=== PATIENT | female | born 1950 | race Caucasian/White ===

== ENCOUNTER 2017-01-27 13:40 | Emergency (ER) | payer OTHER ==
[~2017-01-27] VITALS: Ht 154.9 cm; Wt 78.5 kg
[~2017-01-27 13:40] MED LIST: AMBIEN CR12.5 MG PO; ATIVAN0.5 MG PO; ATORVASTATIN CA10 MG PO; BENICAR20 MG PO; CALCIUM500 M4 PO; DESYREL100 MG PO; DIAZEPAM5 MG PO; HYDROXYZINE HCL50 MG PO; LYRICA150 MG PO; MELOXICAM15 MG PO; METFORMIN HCL500 MG PO; OMEPRAZOLE20 MG PO; ONE DAILY 50 P1 EACH PO; POSTURE D; VALIUM2 MG PO; VENLAFAXINE HC150 M1 PO
[2017-01-27 14:07] LABS: HEMATOCRIT 36.6 % (36.0-46.0); MCH 28.4 PG (29.0-34.0); MCHC 33.9 G/DL (30.0-36.0); MCV 83.8 FL (83-99); MEAN PLAT.VOLUME 10.4 uM^3 (9.5-12.4); PLATELET COUNT 189 K/uL (156-360); RBC DIS.WIDTH-CV 13.7 % (11.8-14.6); RBC DIS.WIDTH-SD 40.5 % (39-53); RED BLOOD COUNT 4.37 M/uL (3.80-5.20)
[2017-01-27 14:16] LABS: CHLORIDE 110 mEq/L (99-109)
[2017-01-27 14:17] LABS: POTASSIUM 4.2 mEq/L (3.7-5.4); SODIUM 142 mEq/L (136-147)
[2017-01-27 14:18] LABS: ADD MIUA? YES; BILIRUBIN NEGATIVE; BLOOD NEGATIVE; COLOR YELLOW ((YELLOW)); GLUCOSE (STRIP) NEGATIVE; KETONES 20; LEUKOCYTES TRACE; NITRITE NEGATIVE; PROTEIN (STRIP) 100; SPECIFIC GRAVITY 1.026 (1.000-1.030); UROBILINOGEN 0.2 MG/DL (0.2-1.0)
[2017-01-27 14:19] LABS: GLUCOSE 146 mg/dL (70-99)
[2017-01-27 14:20] LABS: ANION GAP 10 MEQ/L (2-14)
[2017-01-27 14:21] LABS: TOTAL BILIRUBIN 0.6 mg/dL (0.0-1.0)
[2017-01-27 14:22] LABS: ALKALINE PHOSPHATASE 101 IU/L (3-129); GFR ESTIMATE (CALCULATED) 34 mL/min/
[2017-01-27 14:24] LABS: UREA NITROGEN (BUN) 22 mg/dL (9-23)
[2017-01-27 14:26] LABS: LIPASE 19 U/L (1.0-51.0)
[2017-01-27 14:43] LABS: BACTERIA NONE SEEN /HPF; EPITHELIAL CELLS 1+ /HPF; MUCUS 1+ /LPF; RED BLOOD CELLS 0-5 /HPF (0-5); UCUL ADDED? NO
[2017-01-27] MEDS ORDERED: KEFLEX500 MG PO (17:33)
[2017-01-27 17:49] VITALS: BP 137/73
== END 2017-01-27 17:56 | disposition home or self-care (01) ==
LOC: EME 13:40
DX: N39.0 Urinary tract infection, site not specified (principal); E86.0 Dehydration; E11.9 Type 2 diabetes mellitus without complications; E78.5 Hyperlipidemia, unspecified; Z79.84 Long term (current) use of oral hypoglycemic drugs; F17.200 Nicotine dependence, unspecified, uncomplicated
CPT/HCPCS: 80053; 81003; 83605; 83690; 85027; 87077; 87086; 87186; 99281; 99284; J0696; J2060; J7030; J7050

== ENCOUNTER 2017-01-28 15:18 | Emergency (ER) | payer OTHER ==
[~2017-01-28] VITALS: Ht 154.9 cm; Wt 78.2 kg
[~2017-01-28 15:18] MED LIST changes: +KEFLEX500 MG PO
[2017-01-28 17:29] LABS: HEMATOCRIT 35.3 % (36.0-46.0); MCH 28.6 PG (29.0-34.0); MCHC 34.8 G/DL (30.0-36.0); MCV 82.1 FL (83-99); MEAN PLAT.VOLUME 10.9 uM^3 (9.5-12.4); PLATELET COUNT 195 K/uL (156-360); RBC DIS.WIDTH-CV 13.5 % (11.8-14.6); RBC DIS.WIDTH-SD 38.8 % (39-53); WHITE BLOOD COUNT 6.6 K/uL (4.1-10.2)
[2017-01-28 17:41] LABS: CHLORIDE 111 mEq/L (99-109); POTASSIUM 3.7 mEq/L (3.7-5.4); SODIUM 143 mEq/L (136-147)
[2017-01-28 17:44] LABS: GLUCOSE 111 mg/dL (70-99)
[2017-01-28 17:45] LABS: ANION GAP 10 MEQ/L (2-14); TOTAL BILIRUBIN 0.6 mg/dL (0.0-1.0)
[2017-01-28 17:46] LABS: SERUM ETHYL ALCOHOL < 10 mg/dL
[2017-01-28 17:47] LABS: ALKALINE PHOSPHATASE 94 IU/L (3-129); GFR ESTIMATE (CALCULATED) 37 mL/min/
[2017-01-28 17:48] LABS: UREA NITROGEN (BUN) 22 mg/dL (9-23)
[2017-01-28 17:49] LABS: DIRECT BILIRUBIN 0.2 mg/dL (0.0-0.3)
[2017-01-28 17:51] LABS: LIPASE 15 U/L (1.0-51.0)
[2017-01-28 21:40] VITALS: BP 128/65
== END 2017-01-28 21:42 | disposition home or self-care (01) ==
LOC: EME 15:18
PROVIDERS: Emergency Medicine
DX: F33.1 Major depressive disorder, recurrent, moderate (principal); T14.8 Other injury of unspecified body region; F41.1 Generalized anxiety disorder; F60.3 Borderline personality disorder; M79.7 Fibromyalgia; E78.5 Hyperlipidemia, unspecified; R73.03 Prediabetes; F17.200 Nicotine dependence, unspecified, uncomplicated
CPT/HCPCS: 70450; 80048; 80076; 81003; 83690; 85027; 87086; 90839; 99281; 99284; G0480

== ENCOUNTER 2017-02-13 01:45 | Emergency (ER) | payer OTHER ==
[~2017-02-13] VITALS: Ht 154.9 cm; Wt 81.3 kg
[2017-02-13 02:36] LABS: HEMATOCRIT 40.8 % (36.0-46.0); MCH 28.4 PG (29.0-34.0); MCHC 33.6 G/DL (30.0-36.0); MCV 84.6 FL (83-99); MEAN PLAT.VOLUME 11.7 uM^3 (9.5-12.4); PLATELET COUNT 212 K/uL (156-360); RBC DIS.WIDTH-CV 13.3 % (11.8-14.6); RBC DIS.WIDTH-SD 41.1 % (39-53); RED BLOOD COUNT 4.82 M/uL (3.80-5.20)
[2017-02-13 02:37] LABS: WHITE BLOOD COUNT 9.5 K/uL (4.1-10.2)
[2017-02-13 02:48] LABS: CHLORIDE 104 mEq/L (99-109); POTASSIUM 4.1 mEq/L (3.7-5.4); SODIUM 139 mEq/L (136-147)
[2017-02-13 02:49] LABS: GLUCOSE 180 mg/dL (70-99)
[2017-02-13 02:51] LABS: ANION GAP 11 MEQ/L (2-14)
[2017-02-13 02:53] LABS: GFR ESTIMATE (CALCULATED) 28 mL/min/
[2017-02-13 02:54] LABS: UREA NITROGEN (BUN) 22 mg/dL (9-23)
[2017-02-13 04:07] LABS: ADD MIUA? YES; BILIRUBIN NEGATIVE; BLOOD NEGATIVE; COLOR YELLOW ((YELLOW)); GLUCOSE (STRIP) NEGATIVE; KETONES NEGATIVE; LEUKOCYTES TRACE; NITRITE NEGATIVE; PROTEIN (STRIP) 30; SPECIFIC GRAVITY 1.017 (1.000-1.030); UROBILINOGEN 0.2 MG/DL (0.2-1.0)
[2017-02-13 04:12] LABS: BACTERIA RARE /HPF; EPITHELIAL CELLS RARE /HPF; HYALINE CASTS 0-5 /LPF; MUCUS TRACE /LPF; RED BLOOD CELLS 0-5 /HPF (0-5); UCUL ADDED? NO; WHITE BLOOD CELLS NONE SEEN /HPF (0-5)
[2017-02-13] MEDS ORDERED: PERCOCET 5/31 TABLET PO (04:15)
[2017-02-13] MEDS ORDERED: FLOMAX0.4 MG PO (04:15)
[2017-02-13 05:04] VITALS: BP 123/85
[2017-02-14] MEDS ORDERED: ZOFRAN4 MG PO (05:33)
[2017-02-14] MEDS ORDERED: LYRICA50 MG PO (20:13)
[2017-02-14] MEDS ORDERED: 50+ COMPANION0.4 MG PO (20:14)
== END 2017-02-13 05:05 | disposition home or self-care (01) ==
LOC: EME 01:45 → EXP 01:45
DX: N20.1 Calculus of ureter (principal); N18.9 Chronic kidney disease, unspecified; M79.7 Fibromyalgia; R73.03 Prediabetes; F17.200 Nicotine dependence, unspecified, uncomplicated
CPT/HCPCS: 74176; 80048; 81003; 85027; 99281; 99285; J1885; J2270; J2405; J7030

== ENCOUNTER 2017-02-14 02:18 | Emergency (ER) | payer OTHER ==
[~2017-02-14] VITALS: Ht 154.9 cm; Wt 76.5 kg
[~2017-02-14 02:18] MED LIST changes: +FLOMAX0.4 MG PO; +PERCOCET 5/31 TABLET PO
[2017-02-14 03:22] LABS: HEMATOCRIT 39.6 % (36.0-46.0); MCH 28.3 PG (29.0-34.0); MCHC 32.8 G/DL (30.0-36.0); MCV 86.3 FL (83-99); MEAN PLAT.VOLUME 11.2 uM^3 (9.5-12.4); PLATELET COUNT 166 K/uL (156-360); RBC DIS.WIDTH-CV 13.5 % (11.8-14.6); RBC DIS.WIDTH-SD 42.5 % (39-53); RED BLOOD COUNT 4.59 M/uL (3.80-5.20); WHITE BLOOD COUNT 7.5 K/uL (4.1-10.2)
[2017-02-14 03:30] LABS: CHLORIDE 105 mEq/L (99-109); POTASSIUM 3.9 mEq/L (3.7-5.4); SODIUM 139 mEq/L (136-147)
[2017-02-14 03:32] LABS: GLUCOSE 125 mg/dL (70-99)
[2017-02-14 03:34] LABS: ANION GAP 12 MEQ/L (2-14); TOTAL BILIRUBIN 0.8 mg/dL (0.0-1.0)
[2017-02-14 03:36] LABS: ALKALINE PHOSPHATASE 110 IU/L (3-129); GFR ESTIMATE (CALCULATED) 32 mL/min/
[2017-02-14 03:37] LABS: UREA NITROGEN (BUN) 19 mg/dL (9-23)
[2017-02-14 03:39] LABS: LIPASE 13 U/L (1.0-51.0)
[2017-02-14 05:09] LABS: ADD MIUA? YES; BILIRUBIN NEGATIVE; BLOOD NEGATIVE; COLOR YELLOW ((YELLOW)); GLUCOSE (STRIP) NEGATIVE; KETONES NEGATIVE; LEUKOCYTES TRACE; NITRITE NEGATIVE; PROTEIN (STRIP) NEGATIVE; SPECIFIC GRAVITY 1.016 (1.000-1.030); UROBILINOGEN 0.2 MG/DL (0.2-1.0)
[2017-02-14] MEDS ORDERED: ZOFRAN4 MG PO (05:33)
[2017-02-14 05:43] VITALS: BP 159/96
[2017-02-14 05:50] LABS: BACTERIA RARE /HPF; EPITHELIAL CELLS RARE /HPF; MUCUS TRACE /LPF; RED BLOOD CELLS 0-5 /HPF (0-5); UCUL ADDED? NO; WHITE BLOOD CELLS 0-5 /HPF (0-5)
[2017-02-14] MEDS ORDERED: LYRICA50 MG PO (20:13)
[2017-02-14] MEDS ORDERED: 50+ COMPANION0.4 MG PO (20:14)
[2017-02-15] MEDS ORDERED: TAMSULOSIN HCL0.4 MG PO (14:31)
[2017-02-15] MEDS ORDERED: CIPRO500 MG PO (14:31)
== END 2017-02-14 05:55 | disposition home or self-care (01) ==
LOC: EME 02:18
PROVIDERS: Emergency Medicine
DX: N20.1 Calculus of ureter (principal); N23 Unspecified renal colic; R10.9 Unspecified abdominal pain
CPT/HCPCS: 74000; 80053; 81003; 83690; 85027; 99281; 99284; J1885; J2270; J2405; J7030

== ENCOUNTER 2017-02-14 16:56 | Observation (INO) | payer OTHER ==
[~2017-02-14] VITALS: Ht 152.4 cm; Wt 77.2 kg
[~2017-02-14 16:56] MED LIST changes: +ZOFRAN4 MG PO
[2017-02-14 18:24] LABS: HEMATOCRIT 38.3 % (36.0-46.0); MCH 28.2 PG (29.0-34.0); MCHC 32.6 G/DL (30.0-36.0); MCV 86.5 FL (83-99); RBC DIS.WIDTH-CV 13.4 % (11.8-14.6); RBC DIS.WIDTH-SD 42.5 % (39-53); RED BLOOD COUNT 4.43 M/uL (3.80-5.20)
[2017-02-14 18:30] LABS: CHLORIDE 107 mEq/L (99-109); POTASSIUM 4.1 mEq/L (3.7-5.4); SODIUM 142 mEq/L (136-147)
[2017-02-14 18:32] LABS: GLUCOSE 109 mg/dL (70-99)
[2017-02-14 18:33] LABS: ANION GAP 17 MEQ/L (2-14)
[2017-02-14 18:35] LABS: GFR ESTIMATE (CALCULATED) 32 mL/min/
[2017-02-14 18:36] LABS: UREA NITROGEN (BUN) 17 mg/dL (9-23)
[2017-02-14] MEDS ORDERED: LYRICA50 MG PO (20:13)
[2017-02-14] MEDS ORDERED: 50+ COMPANION0.4 MG PO (20:14)
[2017-02-14 21:06] LABS: MEAN PLAT.VOLUME 11.3 uM^3 (9.5-12.4); PLATELET COUNT 177 K/uL (156-360)
[2017-02-14 22:22] LABS: ADD MIUA? NO; BILIRUBIN NEGATIVE; BLOOD NEGATIVE; COLOR YELLOW ((YELLOW)); GLUCOSE (STRIP) NEGATIVE; KETONES 5; LEUKOCYTES NEGATIVE; NITRITE NEGATIVE; PROTEIN (STRIP) 30; SPECIFIC GRAVITY 1.016 (1.000-1.030); UCUL ADDED? NO; UROBILINOGEN 0.2 MG/DL (0.2-1.0)
[2017-02-14 23:31] VITALS: BP 141/74
[2017-02-14 23:36] LABS: POINT-OF-CARE METER ID UU14162513
[2017-02-15 03:58] VITALS: BP 144/88
[2017-02-15 05:33] LABS: POINT-OF-CARE METER ID UU13113700
[2017-02-15 07:18] LABS: ANION GAP 7 MEQ/L (2-14); CHLORIDE 112 MEQ/L (99-109); GFR ESTIMATE (CALCULATED) 34 mL/min/; GLUCOSE 93 mg/dL (70-99); POTASSIUM 3.8 MEQ/L (3.7-5.4); SAMPLE HEMOLYSIS CHECK 0; SAMPLE ICTERIC CHECK 0; SAMPLE LIPEMIA CHECK 0; SODIUM 144 MEQ/L (136-147); UREA NITROGEN (BUN) 14 mg/dL (9-23)
[2017-02-15 09:09] VITALS: BP 147/79
[2017-02-15 10:41] VITALS: BP 162/99
[2017-02-15 13:42] VITALS: BP 162/76
[2017-02-15 14:15] LABS: POINT-OF-CARE METER ID UU13113700
[2017-02-15] MEDS ORDERED: CIPRO500 MG PO (14:31)
[2017-02-15] MEDS ORDERED: TAMSULOSIN HCL0.4 MG PO (14:31)
== END 2017-02-15 17:21 | disposition home or self-care (01) ==
LOC: EME 16:56 → EDOF 21:10 → 5WEST 21:10 → EDOF 21:10 → 5WEST 22:21
PROVIDERS: Emergency Medicine; Hospitalist; Internal Medicine; Physician Assistant Medical
DX: N13.2 Hydronephrosis with renal and ureteral calculous obstruction (principal); E86.0 Dehydration; F11.20 Opioid dependence, uncomplicated; N18.3 Chronic kidney disease, stage 3 (moderate); K21.9 Gastro-esophageal reflux disease without esophagitis; F41.9 Anxiety disorder, unspecified; F32.9 Major depressive disorder, single episode, unspecified; F60.3 Borderline personality disorder; G89.29 Other chronic pain; M79.7 Fibromyalgia; E11.9 Type 2 diabetes mellitus without complications; F17.210 Nicotine dependence, cigarettes, uncomplicated
CPT/HCPCS: 74000; 74420; 80048; 81003; 82948; 85027; 99281; 99285; C1758; C1876; G0378; J0690; J1100; J1200; J1885; J2060; J2250; J2270; J2405; J3010; J7030; S0028